=== PATIENT | male | born 1985 | race Caucasian/White ===

== ENCOUNTER 2024-01-19 11:41 | Emergency (ER) | payer OTHER, SELFPAY ==
[2024-01-19 12:08] VITALS: BP 132/82; PULSE 74; TEMP 36.7; O2SAT 99; BMI 26.5
--- NOTE | 2024-01-19 12:15 | XR_ITS ---
The [address] [address] Patient Name: ISAI AMOS MRN: [id number] date: 1985 Sex: M Assigned Patient Location: ER Current Patient Location: ER Accession/Order Number: [id number] Exam Date: 01/19/2024 12:35 Report Date: 01/19/2024 13:50 At the request of: ROB SENA Procedure: XR ankle RT min 3V PROCEDURE: XR foot RT min 3V, XR ankle RT min 3V COMPARISON: None. HISTORY: pain FINDINGS: BONES:No fracture, acute abnormality, or significant arthropathy. SOFT TISSUES:Moderate lateral soft tissue swelling EFFUSION:Small ankle joint effusion OTHER: Negative. XR/XR ankle RT min 3V IMPRESSION: Lateral ankle soft tissue swelling Ankle joint effusion No acute fracture of the foot or ankle Electronically authenticated by: VIVIANA MOSER Date: 01/19/2024 13:50
--- NOTE | 2024-01-19 12:15 | XR_ITS ---
The [address] [address] Patient Name: ISAI AMOS MRN: [id number] date: 1985 Sex: M Assigned Patient Location: ER Current Patient Location: ER Accession/Order Number: [id number] Exam Date: 01/19/2024 12:35 Report Date: 01/19/2024 13:50 At the request of: ROB SENA Procedure: XR foot RT min 3V PROCEDURE: XR foot RT min 3V, XR ankle RT min 3V COMPARISON: None. HISTORY: pain FINDINGS: BONES:No fracture, acute abnormality, or significant arthropathy. SOFT TISSUES:Moderate lateral soft tissue swelling EFFUSION:Small ankle joint effusion OTHER: Negative. XR/XR foot RT min 3V IMPRESSION: Lateral ankle soft tissue swelling Ankle joint effusion No acute fracture of the foot or ankle Electronically authenticated by: VIVIANA MOSER Date: 01/19/2024 13:50
--- NOTE | 2024-01-19 14:32 | ED_ITS ---
HPI HPI - Extremity Injury (Lower) General Chief Complaint: Extremity Injury, Lower Stated Complaint: LOWER RIGHT EXTREMITY PAIN Time Seen by Provider: 01/19/24 14:11 Source: patient Mode of arrival: ambulance Limitations: no limitations History of Present Illness HPI Narrative: Patient is a 38-year-old male who presents to the emergency department for the evaluation of a right foot and ankle injury that [place]. He denies any other associated injuries but states he twisted his foot and ankle. He complains of pain and swelling over the foot and ankle today, no medication taken prior to arrival. He is able to ambulate. Related Data Home Medications ?Medication ?Instructions ?Recorded ?Confirmed bupropion HCl 300 mg 24 hr tablet, 300 mg PO DAILY 01/19/24 01/19/24 extended release Previous Rx's ?Medication ?Instructions ?Recorded ketorolac 10 mg tablet 10 mg PO TID PRN pain #10 tabs 01/19/24 Allergies Allergy/AdvReac Type Severity Reaction Status Date / Time lidocaine Allergy Severe Cramping Verified 01/19/24 12:08 of the Muscles Opioid HPI Opioid Management Most Recent Pain and Opioid Data: No Data to Display Review of Systems ROS Constitutional Denies: fever or chills Ears, nose, mouth, and throat Denies: throat pain or nasal congestion Respiratory Denies: shortness of breath Gastrointestinal Denies: nausea or vomiting Musculoskeletal Reports: extremity pain, joint pain, limited range of motion and joint swelling; Denies: back pain or neck pain Integumentary/Breast Denies: rash Neurological Denies: headache Hematologic/Lymphatic Denies: easy bruising or easy bleeding Exam Narrative Exam Narrative: Gen.: Awake, alert, in no distress Head: Normocephalic, atraumatic ENT: Moist mucous membranes Respiratory: No respiratory distress Extremities: Dorsal lateral aspect of the right foot is swollen, bruised with diffuse swelling and tenderness over the right lateral malleolus. No obvious deformity. Normal flexion and extension of the toes. 2+ right DP pulse. Psych: Normal mood and affect Neuro: No focal neuro deficit Skin: Warm, dry, intact Constitutional Vital Signs, click to edit/add: Last Vital Signs Temp 98.0 F 01/19/24 12:08 Pulse 74 01/19/24 12:08 Resp 18 01/19/24 12:08 BP 132/82 01/19/24 12:08 Pulse Ox 99 01/19/24 12:08 O2 Del Method Room Air 01/19/24 12:08 Course Vital Signs Vital signs: Vital Signs Temperature 98.0 F 01/19/24 12:08 Pulse Rate 74 01/19/24 12:08 Respiratory Rate 18 01/19/24 12:08 Blood Pressure 132/82 01/19/24 12:08 Pulse Oximetry 99 01/19/24 12:08 Oxygen Delivery Method Room Air 01/19/24 12:08 Temperature 98.0 F 01/19/24 12:08 Pulse Rate 74 01/19/24 12:08 Respiratory Rate 18 01/19/24 12:08 Blood Pressure 132/82 01/19/24 12:08 Pulse Oximetry 99 01/19/24 12:08 Oxygen Delivery Method Room Air 01/19/24 12:08 MDM - Extremity Injury (Lower) MDM Narrative Medical decision making narrative: X-rays of the right foot and ankle are unremarkable. Patient placed in an David wrap and postop shoe. He was given crutches for comfort. He is neurovascularly intact pre and post hardware application. Rest, ice, elevate. He requested NSAIDs only for pain. Follow-up with PCP and return to the ER if symptoms change or worsen Medical Records Attestation: I reviewed the patient's medical records. Imaging Data XR ankle: Attestation: I have reviewed the pertinent imaging results. Radiologist's impression: ITS Impressions Ankle X-Ray 01/19/24 12:15 IMPRESSION: Lateral ankle soft tissue swelling Ankle joint effusion No acute fracture of the foot or ankle Electronically authenticated by: VIVIANA MOSER Date: 01/19/2024 13:50 Foot X-Ray 01/19/24 12:15 IMPRESSION: Lateral ankle soft tissue swelling Ankle joint effusion No acute fracture of the foot or ankle Electronically authenticated by: VIVIANA MOSER Date: 01/19/2024 13:50 Discharge Plan Discharge Stand Alone Forms: Portal Instructions Chief Complaint: Extremity Injury, Lower Clinical Impression: Sprain of right foot, Sprain of ankle, right Patient Disposition: Home, Self-Care Time of Disposition Decision: 14:31 Condition: Good Prescriptions / Home Meds: New ketorolac 10 mg tablet 10 mg PO TID PRN (Reason: pain) Qty: 10 0RF No Action bupropion HCl 300 mg tablet extended release 24 hr 300 mg PO DAILY Print Language: Turkish Instructions: Ankle Sprain (ED), Foot Sprain (ED) Referrals: Physician,Non-Staff, MD [Primary Care Provider] - 1 week
[2024-01-19 14:37] VITALS: BP 136/89; PULSE 82; O2SAT 98
== END 2024-01-19 14:41 | disposition home or self-care (01) ==
PROVIDERS: Emergency Provider Emergency Medicine
DX: S93.601A Unspecified sprain of right foot, initial encounter (principal); S93.401A Sprain of unspecified ligament of right ankle, initial encounter; Y93.44 Activity, trampolining
CPT/HCPCS: 73610; 73630; 99284

== ENCOUNTER 2024-03-12 12:51 | Outpatient (OUT) | payer OTHER, SELFPAY ==
--- NOTE | 2024-03-12 | MR_ITS ---
The [address] [address] Patient Name: ISAI AMOS MRN: [id number] date: 1985 Sex: M Assigned Patient Location: MRI Current Patient Location: MRI Accession/Order Number: [id number] Exam Date: 03/12/2024 13:10 Report Date: 03/17/2024 08:23 At the request of: LATESHA ARIZA Procedure: MR ankle RT wo con EXAM: MR ankle RT wo con, MR foot RT wo con REASON FOR EXAM: History of right ankle injury. TECHNIQUE: Multiplanar, multisequence imaging of the right ankle and foot was performed without contrast COMPARISON: Radiographs 01/28/2024. FINDINGS: Right ankle: Mild fusiform thickening and intermediate signal the Achilles tendon with distal Achilles enthesophytes is consistent with tendinosis. No tear. The plantar fascia is intact without tear. Laterally, mild thickening and intermediate signal of the peroneal tendons consistent with tendinosis. There is a short segment longitudinal split tear of the inframalleolar peroneus brevis tendon (series 11, images 14-17). Complete rupture not identified. The superficial peroneal retinaculum is intact. Thickening and intermediate signal the anterior talofibular and calcaneofibular ligaments is consistent with prior lateral ligamentous injury. No evidence of acute ligamentous injury. Medially, the medial flexor tendons demonstrate normal thickness and signal without tendinosis or tear. The deep deltoid ligament demonstrates normal morphology with some mild edema, potentially reflecting a low-grade sprain, acute or subacute. The spring ligament is intact. Anteriorly, the anterior extensor tendons demonstrate normal thickness and signal without tendinosis or tear. The bone marrow signal is without fracture or osteonecrosis. Probable intraosseous lipoma identified involving the calcaneus. This well-defined lesion follows fat on all sequences and measures 2.7 cm in maximum dimension. The talar dome is congruent. The subtalar joints intact. Small tibiotalar effusion is present. The subtalar joint is congruent. The sinus tarsi is mildly edematous. The visualized midfoot appears congruent. There is bone marrow edema involving the plantar aspect of the cuboid bone with possible small cortical defect with curvilinear T1 hypointense, T2 hyperintense signal (series 6, image 18; series 8, image 18), potentially reflecting a small nondisplaced fracture. There is also faint bone marrow edema involving the medial malleolus, potential reflecting bone contusion. The plantar musculature demonstrates normal bulk and signal. Remaining soft tissues are unremarkable. Right foot: The remaining bone marrow signal is normal. The midfoot appears congruent. Lisfranc ligament is intact. Mild first through third metatarsal webspace bursitis without discrete neuroma. Plantar muscles are unremarkable. Remaining soft tissues are unremarkable. MR/MR ankle RT wo con IMPRESSION: 1. Possible acute or subacute nondisplaced fracture involving the distal plantar margin the cuboid bone. Probable bone contusion involving the medial malleolus without fracture. 2. Possible acute or subacute low-grade sprain of the deep deltoid ligament. 3. Chronic appearing sprains of the ATFL and CFL. 4. Peroneal tendinosis with small short segment longitudinal split tear of the inframalleolar peroneus brevis tendon. 5. Achilles tendinosis without tear. 6. 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 Electronically authenticated by: REN LOPEZ Date: 03/17/2024 08:23
--- NOTE | 2024-03-12 | MR_ITS ---
The [address] [address] Patient Name: ISAI AMOS MRN: [id number] date: 1985 Sex: M Assigned Patient Location: MRI Current Patient Location: MRI Accession/Order Number: [id number] Exam Date: 03/12/2024 13:10 Report Date: 03/17/2024 08:23 At the request of: LATESHA ARIZA Procedure: MR foot RT wo con EXAM: MR ankle RT wo con, MR foot RT wo con REASON FOR EXAM: History of right ankle injury. TECHNIQUE: Multiplanar, multisequence imaging of the right ankle and foot was performed without contrast COMPARISON: Radiographs 01/28/2024. FINDINGS: Right ankle: Mild fusiform thickening and intermediate signal the Achilles tendon with distal Achilles enthesophytes is consistent with tendinosis. No tear. The plantar fascia is intact without tear. Laterally, mild thickening and intermediate signal of the peroneal tendons consistent with tendinosis. There is a short segment longitudinal split tear of the inframalleolar peroneus brevis tendon (series 11, images 14-17). Complete rupture not identified. The superficial peroneal retinaculum is intact. Thickening and intermediate signal the anterior talofibular and calcaneofibular ligaments is consistent with prior lateral ligamentous injury. No evidence of acute ligamentous injury. Medially, the medial flexor tendons demonstrate normal thickness and signal without tendinosis or tear. The deep deltoid ligament demonstrates normal morphology with some mild edema, potentially reflecting a low-grade sprain, acute or subacute. The spring ligament is intact. Anteriorly, the anterior extensor tendons demonstrate normal thickness and signal without tendinosis or tear. The bone marrow signal is without fracture or osteonecrosis. Probable intraosseous lipoma identified involving the calcaneus. This well-defined lesion follows fat on all sequences and measures 2.7 cm in maximum dimension. The talar dome is congruent. The subtalar joints intact. Small tibiotalar effusion is present. The subtalar joint is congruent. The sinus tarsi is mildly edematous. The visualized midfoot appears congruent. There is bone marrow edema involving the plantar aspect of the cuboid bone with possible small cortical defect with curvilinear T1 hypointense, T2 hyperintense signal (series 6, image 18; series 8, image 18), potentially reflecting a small nondisplaced fracture. There is also faint bone marrow edema involving the medial malleolus, potential reflecting bone contusion. The plantar musculature demonstrates normal bulk and signal. Remaining soft tissues are unremarkable. Right foot: The remaining bone marrow signal is normal. The midfoot appears congruent. Lisfranc ligament is intact. Mild first through third metatarsal webspace bursitis without discrete neuroma. Plantar muscles are unremarkable. Remaining soft tissues are unremarkable. MR/MR foot RT wo con IMPRESSION: 1. Possible acute or subacute nondisplaced fracture involving the distal plantar margin the cuboid bone. Probable bone contusion involving the medial malleolus without fracture. 2. Possible acute or subacute low-grade sprain of the deep deltoid ligament. 3. Chronic appearing sprains of the ATFL and CFL. 4. Peroneal tendinosis with small short segment longitudinal split tear of the inframalleolar peroneus brevis tendon. 5. Achilles tendinosis without tear. 6. 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 Electronically authenticated by: REN LOPEZ Date: 03/17/2024 08:23
== END 2024-03-12 12:52 | disposition home or self-care (01) ==
LOC: MRI 12:51
PROVIDERS: Visit Provider Podiatrist
DX: M25.571 Pain in right ankle and joints of right foot (principal); M79.671 Pain in right foot
CPT/HCPCS: 73718; 73721

== ENCOUNTER 2024-10-28 18:27 | Emergency (ER) | payer OTHER, SELFPAY ==
--- OUTSIDE RECORDS SUMMARY | 2024-10-28 18:33 | XMS_ITS | CCD ---
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 Role Phone MARYC, DR SCHWARTZ Primary Care Unavailable RADHA, DR MAIRCEL Mariscal Admitting Unavailable RADHA, DR MARICEL Mariscal Attending Unavailable RADHA, DR MARICEL Mariscal Consulting Unavailable KAYLYNN, ALAINA Admitting Unavailable MISC, DR SCHWARTZ Primary Care Unavailable KAYLYNN, ALAINA Attending Unavailable ALAINA CHAIDEZ Consulting Unavailable MISC, DR SCHWARTZ Primary Care Unavailable NILL, DR SNOWDEN Admitting Unavailable NILL, DR SNOWDEN Attending Unavailable MISC, DR SCHWARTZ Primary Care Unavailable NILL, DR SNOWDEN Consulting Unavailable NILL, DR SNOWDEN Admitting Unavailable NILL, DR SNOWDEN Attending Unavailable MISC, DR SCHWARTZ Primary Care Unavailable NILL, DR SNOWDEN Consulting Unavailable NILL, DR SNOWDEN Admitting Unavailable NILL, DR SNOWDEN Attending Unavailable ROBERTA STINSON Consulting Unavailable Briseida Tom Unavailable Miguel Jean-Baptiste Unavailable NO FAMILY, PHYSICIAN Primary Care Provider Unava DIMITRI Ochoa Attending Provider [phone] Allison Dickson Attending Unavailable Allison Dickson Admitting Unavailable NO FAMILY, PHYSICIAN Primary Care Unavailable Allergies Allergy Classification Reported Allergen(s) Allergy Type Date of Onset Reaction(s) Facility (3 sources) Lidocaine; Translations: [lidocaine] Drug Allergy 12-10-2023 nervous system starts to shut down [facility] Medications Current Medications Medication Drug Class(es) Dates Sig (Normalized) Sig (Original) 24 hr buPROPion hydrochloride 150 mg extended release oral tablet (3 sources) Aminoketone Start: 12-10-2023 take 1 tablet by mouth once daily Bupropion Hcl Active 300 MG PO Daily December 10, 2023 12:00am [employer]: Oral; Note: Source Status: Taking; Qty: 30 Tablet; Provider: Vaishali Goins ( ) buPROPion HCl ER (XL) 150 MG Oral for 30 Days Active cephalexin 500 mg oral capsule (1 source) Cephalosporin Antibacterial Start: 03-13-2023 take 1 capsule by mouth every eight hours Cephalexin 500 MG 1 capsule Orally tid for 10 day(s) Mar, Active fluconazole 150 mg oral tablet (1 source) Azole Antifungal Start: 03-13-2023 take 1 tablet by mouth every week Diflucan 150 MG 1 tablet Orally once a week for 28 days Mar, Active Completed/Discontinued Medications Medication Drug Class(es) Dates Sig (Normalized) Sig (Original) cyclobenzaprine hydrochloride 10 mg oral tablet (3 sources) Muscle Relaxant Start: 1 take 1 tablet by mouth every eight hours Cyclobenzaprine HCl 10 MG 1 tablet as needed Orally Three times a day for 7 days December, Not-Taking ibuprofen 800 mg oral tablet (3 sources) Nonsteroidal Anti-inflammatory Drug Start: 1 take 1 tablet by mouth three times daily at mealtime as needed Ibuprofen 800 MG 1 tablet with food or milk as needed Orally Three times a day for 10 day(s) May, Not-Taking Ketorolac (1 source) Nonsteroidal Anti-inflammatory Drug, Cyclooxygenase Inhibitor Start: 1 Toradol per 15 mg December, 30 mg methylPREDNISolone 4 mg oral tablet (4 sources) Corticosteroid Start: 1 Medrol 4 MG as directed Orally for 6 days December, Not-Taking Start: 01-04-2021 Depo-Medrol 40 mg December, 60 mg Toradol 30 mg/ml (1 source) Start: 05-24-2021 Toradol 30 mg/ ml May, 30 mg Problems Active Problems Problem Classification Problem Date Documented Da te Episodic/Chronic Abdominal hernia (8 sources) Unilateral inguinal hernia, without obstruction or gangrene, recurrent; Translations: [Unilateral inguinal hernia, with obstruction, without gangrene, not specified as recurrent] Onset: 01-14-2021 Episodic Fever of unknown origin (4 sources) Fever, unspecified; Translations: [FEVER UNSPECIFIED] Onset: 04-23-2021 Episodic Mycoses (1 source) Tinea pedis Episodic Other injuries and conditions due to external causes (1 source) Injury, unspecified, initial encounter; Translations: [Injury, unspecified, initial encounter] Onset: 12-10-2023 Episodic Other upper respiratory infections (1 source) Acute upper respiratory infection, unspecified; Translations: [ACUTE UP RESPIRATORY INFECTION UNS] Onset: 04-25-2021 Episodic Skin and subcutaneous tissue infections (1 source) Local infection of the skin and subcutaneous tissue, unspecified Episodic Substance-related disorders (1 source) Nicotine dependence, cigarettes, uncomplicated; Translations: [NICOTINE DEPEND CIGARETTES UNCOMP] Onset: 02-09-2021 Chronic Unclassified (1 source) CONTACT W/AND (SUSP) EXPOS COVID-19; Translations: [CONTACT W/AND (SUSP) EXPOS COVID-19] Onset: 02-08-2021 Viral infection (1 source) COVID-19; Translations: [COVID-19] Onset: 04-25-2021 Past or Other Problems Problem Classification Problem Date Documented Da te Episodic/Chronic Immunizations and screening for infectious disease (1 source) Encounter for screening for other viral diseases Onset: 08-27-2021 Resolved: 08-27-2021 Episodic Other connective tissue disease (1 source) Pain in right foot; Translations: [Foot pain, right M79.671] Onset: 05-24-2021 Resolved: 05-24-2021 Episodic Other connective tissue disease (1 source) Other enthesopathy of unspecified foot and ankle; Translations: [Tendonitis of foot M77.50] Onset: 05-24-2021 Resolved: 05-24-2021 Episodic Results Test Name Value Interpretation Reference Range Facility XR hand RT min 3V*on 024 XR hand RT min 3V* [facility] [address] [place] [id number] XRay Report Signed Patient: Isai Amos MR#: [id number] 42 : 1985 Acct:[id number] Age/Sex: 37 / M ADM Date: 12/10/23 Loc: XDUCLY Room: Type: [facility] Attending Dr: Allison Dickson APRN Copies to: Allison Dickson APRN Ordering Provider: Allison Dickson APRN Date of Service: 12/10/23 XR/XR hand RT min 3V*: T14.90XA - Injury, unspecified, initial encounter RIGHT HAND - 3 views REASON FOR EXAM: Right hand pain status post injury one week ago. COMPARISON: None FINDINGS: No focal soft tissue abnormality. No acute bony process is seen. Joint spaces appear maintained. XR/XR hand RT min 3V* IMPRESSION: NO ACUTE BONY PROCESS. Impression dictated by: Alexander Garcia Jr., D.O.12/10/2023 10:37 AM Dictation Location: RADIO-PC-12 Transcribed By: [facility] 12/10/23 1037 Dictated By: Alexander Garcia Jr, DO 12/10/23 1033 Signed By: 12/10/23 1037 Normal [facility] COVID Quick Testingon 2021 Result Negative [employer] Other XR foot LT min 3V*on 021 XR foot LT min 3V* [facility] [employer] Other XR foot LT min 3V* [facility] [place] [employer] Other XR foot LT min 3V* [address] [place] [address] [employer] Other XR foot LT min 3V* [place] [address] [employer] Other XR foot LT min 3V* XRay Report [employer] Other XR foot LT min 3V* Signed [employer] Other XR foot LT min 3V* Patient: Isai Amos MR#: [id number] [employer] Other XR foot LT min 3V* 43 [employer] Other XR foot LT min 3V* : 1985 Acct:[id number] [employer] Other XR foot LT min 3V* Age/Sex: 35 / M ADM Date: 05/24/21 [employer] Other XR foot LT min 3V* Loc: XDUCLY Room: Type: [facility] [employer] Other XR foot LT min 3V* Attending Dr: Briseida MORRIS [employer] Other XR foot LT min 3V* Ordering Provider: ARTURO Zepeda [employer] Other XR foot LT min 3V* Date of Service: 05/24/21 [employer] Other XR foot LT min 3V* XR/XR foot LT min 3V*: Foot pain, right [employer] Other XR foot LT min 3V* Copies to: ARTURO Zepeda [employer] Other XR foot LT min 3V* 3 viewsLEFT foot plain film [employer] Other XR foot LT min 3V* COMPARISON:None N [employer] Other XR foot LT min 3V* HISTORY:LEFT anterior foot pain. No trauma. [employer] Other XR foot LT min 3V* No fracture, dislocation or focal soft tissue abnormality seen. No significant degeneration. [employer] Other XR foot LT min 3V* XR/XR foot LT min 3V* [employer] Other XR foot LT min 3V* IMPRESSION:Unremarka ble exam [employer] Other XR foot LT min 3V* Impression dictated by: Ceasar Crump M.D.05/24/2021 5:26 PM [employer] Other XR foot LT min 3V* Dictation Location: [place] [address] [employer] Other XR foot LT min 3V* Transcribed By: SHEREE 05/24/21 1726 [employer] Other XR foot LT min 3V* Dictated By: TheronCeasar S DO 05/24/21 1723 [facility] [employer] Other XR foot LT min 3V* Signed By: [employer] Other XR foot LT min 3V* 05/24/21 1726 [facility] [employer] Other SYMPTOMATIC COVID-19 ANTIGEN on 04-23-2021 EUA Statement SEE BELOW [facility] Comment on above: Result Comment: This test has not been FDA cleared or approved, but has been authorized by the FDA under an Emergency Use Authorization (EUA) for use by authorized laboratories certified under CLIA that meet the requirements to perform moderate or high complexity testing. This test has been authorized only for the detection of proteins from SARS-CoV-2, not for any other viruses or pathogens. The emergency use of this test is authorized for the duration of the declaration that circumstances exist justifying the authorization of emergency use of in vitro diagnostic tests for detection and/or diagnosis of Covid-19 under section 564(b)(1) of the Act, 21 U.S.C. 360bbb-3(b)(1), unless the declaration is terminated or authorization is revoked sooner. Performed By: #### C VDAGS #### [facility] [address] [place] [address] Campbell Jon SARS-CoV-2 (COVID-19) RNA ANIA+probe Ql (Unsp spec) Positive Invalid Interpretation Code NEGATIVE [facility] Comment on above: Performed By: #### C VDAGS #### [facility] [address] [place], [place] [address] Campbell Jon Patient Correspondenceon Patient Correspondence [id number] #1.00CD:[address] [facility] Provider Letteron 03-13-2021 Provider Letter March 10, 2021 March 10, 2021 [address] [place] [id number] ISAI AMOS 1985 To Whom It May Concern, Please excuse above patient from work. Date of Illness: From: 02/08/21 To: 03/12/21 May Return to Work On: 03/13/21 Restrictions: none Sincerely, Dr. Isi Wesley General Surgery [facility] Pt called stating that he needed a signed note before he could go back, rtw date needed to be changed to 03/14/21 due to not being able to return today until signed note was faxed in. New note made, signed and faxed today .([phone]) Normal [facility] Formson 03-09-2021 Forms [id number] #1.00CD:[address] [facility] Ambulatory Clinical Summaryo n 03-07-2021 Ambulatory Clinical Summary {[id number]}CD:[id number] Normal [facility] General Surgery Office/Clini c Noteon 03-07-2021 General Surgery Office/Clinic Note HPI Staff RIH repair with mesh 02/08/21 4 wks p/o c/o pain rt groin and rt mid abd , bloated History of Present Illness 4 weeks s/p RIHR with mesh; doing well, patient reports some pain with activity, bending; did do some heavy lifting x 1; taking ibuprofen; not ready to return to work tomorrow; no problems with incision. Review of Systems ROS - Provider Constitutional: no fever, no sweats, no weight loss. Eyes: no glasses, no blurred vision, no visual loss. ENMT: no dentures, no hoarseness, no swallowing difficulties, no hearing loss, no ear infection(s), no nose bleeds. Cardiovascular: normal blood pressure, no chest pain, regular heartbeat, no heart murmur. Respiratory: no shortness of breath, no cough, no asthma, no wheezing. Gastrointestinal: no nausea, no vomiting, no diarrhea, no constipation, no blood in stool, no change in bowel habits, no abdominal pain, no hepatitis. Genitourinary: no kidney stones, no urine infection, no dysuria. Musculoskeletal: no pain, no weakness. Skin: no changing moles, no rash, no skin lumps. Neurologic: no seizures, no epilepsy, no headache. Psychiatric: no emotional or psychiatric problem. Heme/Lymph: no bleeding problems, no anemia, no blood clots, no transfusions. Allergy/Immunologic: no swollen lymph nodes/glands, no IV drug abuse. Other: Additional ROS info: Except as noted in the above Review of Systems and in the History of Present Illness, all other systems have been reviewed and are negative or noncontributory. Physical Exam Vitals & Measurements T: 37.0 ?C (Tympanic) abd:soft, normal bs, nontender, nondistended; incision well-healed, no erythema or drainage; no recurrent hernia, no point tenderness. Assessment/Plan 1. Reducible right inguinal hernia (K40.90: Unilateral inguinal hernia, without obstruction or gangrene, not specified as recurrent) doing well; off work this week; gradually resume regular activities; return to work Saturday without restrictions; call with problems/questions. Follow-up No qualifying data available Problem List/Past Medical History Ongoing BMI 27.0-27.9,adult Diverticulitis Reducible right inguinal hernia Smoker Tobacco use Historical No qualifying data Procedure/Surgical History Repair of right inguinal hernia (02/08/2021), History of inguinal hernia surgery (02/1987), Ganglion cyst. Medications No active medications Allergies No Known Allergies Social History Alcohol Past, 01/24/2021 Tobacco 10 or more cigarettes (1/2 pack or more)/day in last 30 days Tobacco Use:. Never Smokeless Tobacco Use:. Cigarettes, 02/21/2021 Family History Cancer: Mother. Immunizations Vaccine Date Status Comments SARS-CoV-2 (COVID-19) mRNA-1273 vaccine 10/14/2020 Recorded [employer] [facility] Comment on above: Result Comment: Elec tronically Signed By: MARKO ROBERTSON, Isi Mcginnis\Date and Time Signed: 03/07/21 13:06 EDT Formson 02-23-2021 Forms [id number] #1.00CD:127 [facility] Ambulatory Clinical Summaryo n 02-21-2021 Ambulatory Clinical Summary {[id number]}CD:[id number] Normal [facility] General Surgery Office/Clini c Noteon 02-21-2021 General Surgery Office/Clinic Note Chief Complaint post operative follow up HPI Staff 13 day post operative follow up post right inguinal hernia repair with mesh. Doing well. Minimal discomfort. Taking Ibuprofen 800mg daily. Scant bloody drainage on bandage. Bowels moving well. History of Present Illness 2 weeks s/p RIHR with mesh, doing well, minimal soreness, no drainage; not doing any strenuous activities. Review of Systems ROS - Provider Constitutional: no fever, no sweats, no weight loss. Eyes: no glasses, no blurred vision, no visual loss. ENMT: no dentures, no hoarseness, no swallowing difficulties, no hearing loss, no ear infection(s), no nose bleeds. Cardiovascular: normal blood pressure, no chest pain, regular heartbeat, no heart murmur. Respiratory: no shortness of breath, no cough, no asthma, no wheezing. Gastrointestinal: no nausea, no vomiting, no diarrhea, no constipation, no blood in stool, no change in bowel habits, no abdominal pain, no hepatitis. Genitourinary: no kidney stones, no urine infection, no dysuria. Musculoskeletal: no pain, no weakness. Skin: no changing moles, no rash, no skin lumps. Neurologic: no seizures, no epilepsy, no headache. Psychiatric: no emotional or psychiatric problem. Heme/Lymph: no bleeding problems, no anemia, no blood clots, no transfusions. Allergy/Immunologic: no swollen lymph nodes/glands, no IV drug abuse. Other: Additional ROS info: Except as noted in the above Review of Systems and in the History of Present Illness, all other systems have been reviewed and are negative or noncontributory. Physical Exam Vitals & Measurements T: 36.6 ?C (Temporal Artery) abd: soft, normal bs, nontender, nondistended, incision without erythema or drainage, no fluctuance. Assessment/Plan 1. Reducible right inguinal hernia (K40.90: Unilateral inguinal hernia, without obstruction or gangrene, not specified as recurrent) doing well, continue no lifting > 10 lbs for 2 weeks, follow up in 2 weeks; call sooner if problems/questions. Follow-up No qualifying data available Problem List/Past Medical History Ongoing BMI 27.0-27.9,adult Diverticulitis Reducible right inguinal hernia Smoker Tobacco use Historical No qualifying data Procedure/Surgical History Repair of right inguinal hernia (02/08/2021), History of inguinal hernia surgery (02/1987), Ganglion cyst. Medications No active medications Allergies No Known Allergies Social History Alcohol Past, 01/24/2021 Tobacco 10 or more cigarettes (1/2 pack or more)/day in last 30 days Tobacco Use:. Never Smokeless Tobacco Use:. Cigarettes, 02/21/2021 Family History Cancer: Mother. Immunizations Vaccine Date Status Comments SARS-CoV-2 (COVID-19) mRNA-1273 vaccine 10/14/2020 Recorded [id number] Comment on above: Result Comment: Elec tronically Signed By: MARKO ROBERTSON, Isi Mcginnis\Date and Time Signed: 02/21/21 13:18 EDT Operative Reporton Operative Report [id number] #1.00CD:127 [facility] Formson 02-06-2021 Forms [id number] #1.00CD:127 [facility] Lab Reportson 02-06-2021 Lab Reports [id number] #1.00CD:127 [facility] RAPID COVID-19 ANTIGENon EUA Statement SEE BELOW [facility] Comment on above: Result Comment: This test has not been FDA cleared or approved, but has been authorized by the FDA under an Emergency Use Authorization (EUA) for use by authorized laboratories certified under CLIA that meet the requirements to perform moderate or high complexity testing. This test has been authorized only for the detection of proteins from SARS-CoV-2, not for any other viruses or pathogens. The emergency use of this test is authorized for the duration of the declaration that circumstances exist justifying the authorization of emergency use of in vitro diagnostic tests for detection and/or diagnosis of Covid-19 under section 564(b)(1) of the Act, 21 U.S.C. 360bbb-3(b)(1), unless the declaration is terminated or authorization is revoked sooner. Performed By: #### C VDAG #### [facility] [address] [place], [place] [id number] Campbell Jon SARS-CoV-2 (COVID-19) RNA ANIA+probe Ql (Unsp spec) Negative Normal NEGATIVE [facility] Comment on above: Result Comment: Nega tive results are presumptive. They do not preclude infection and should not be used as the sole basis for treatment decisions. Additional confirmatory testing by a molecular method should be considered. Performed By: #### C VDAG #### [facility] [address] [place] [address] Campbell Jon Consent for Procedure/Surger yon 01-25-2021 Consent for Procedure/Surgery [id number] #1.00CD:[address] [facility] Ambulatory Clinical Summaryo n 01-24-2021 Ambulatory Clinical Summary {[id number]}CD:[id number] Normal [facility] Ambulatory Clinical Summary {[id number]}CD:[id number] Normal [facility] Patient Educationon 01-25-20 Patient Education Gastroenterology Open Hernia Repair, Adult Open hernia repair is a surgical procedure to fix a hernia. A hernia occurs when an internal organ or tissue pushes out through a weak spot in the abdominal wall muscles. Hernias commonly occur in the groin and around the navel. Most hernias tend to get worse over time. Often, surgery is done to prevent the hernia from becoming bigger, uncomfortable, or an emergency. Emergency surgery may be needed if abdominal contents get stuck in the opening (incarcerated hernia) or the blood supply gets cut off (strangulated hernia). In an open repair, an incision is made in the abdomen to perform the surgery. Tell a health care provider about: ? Any allergies you have. ? All medicines you are taking, including vitamins, herbs, eye drops, creams, and yhrf-vem-ldgzdqb medicines. ? Any problems you or family members have had with anesthetic medicines. ? Any blood or bone disorders you have. ? Any surgeries you have had. ? Any medical conditions you have, including any recent cold or flu symptoms. ? Whether you are or may be . What are the risks? Generally, this is a safe procedure. However, problems may occur, including: ? Long-lasting (chronic) pain. ? Bleeding. ? Infection. ? Damage to the testicle. This can cause shrinking or swelling. ? Damage to the bladder, blood vessels, intestine, or nerves near the hernia. ? Trouble passing urine. ? Allergic reactions to medicines. ? Return of the hernia. What happens before the procedure? Staying hydrated Follow instructions from your health care provider about hydration, which may include: ? Up to 2 hours before the procedure ? you may continue to drink clear liquids, such as water, clear fruit juice, black coffee, and plain tea. Eating and drinking restrictions Follow instructions from your health care provider about eating and drinking, which may include: ? 8 hours before the procedure ? stop eating heavy meals or foods such as meat, fried foods, or fatty foods. ? 6 hours before the procedure ? stop eating light meals or foods, such as toast or cereal. ? 6 hours before the procedure ? stop drinking milk or drinks that contain milk. ? 2 hours before the procedure ? stop drinking clear liquids. Medicines ? Ask your health care provider about: ? Changing or stopping your regular medicines. This is especially important if you are taking diabetes medicines or blood thinners. ? Taking medicines such as aspirin and ibuprofen. These medicines can thin your blood. Do not take these medicines before your procedure if your health care provider instructs you not to. ? You may be given antibiotic medicine to help prevent infection. General instructions ? You may have blood tests or imaging studies. ? Ask your health care provider how your surgical site will be marked or identified. ? If you smoke, do not smoke for at least 2 weeks before your procedure or for as long as told by your health care provider. ? Let your health care provider know if you develop a cold or any infection before your surgery. ? Plan to have someone take you home from the hospital or clinic. ? If you will be going home right after the procedure, plan to have someone with you for 24 hours. What happens during the procedure? ? To reduce your risk of infection: ? Your health care team will wash or sanitize their hands. ? Your skin will be washed with soap. ? Hair may be removed from the surgical area. ? An IV tube will be inserted into one of your veins. ? You will be given one or more of the following: ? A medicine to help you relax (sedative). ? A medicine to numb the area (local anesthetic). ? A medicine to make you fall asleep (general anesthetic). ? Your surgeon will make an incision over the hernia. ? The tissues of the hernia will be moved back into place. ? The edges of the hernia may be stitched together. ? The opening in the abdominal muscles will be closed with stitches (sutures). Or, your surgeon will place a mesh patch made of manmade (synthetic) material over the opening. ? The incision will be closed. ? A bandage (dressing) may be placed over the incision. The procedure may vary among health care providers and hospitals. What happens after the procedure? ? Your blood pressure, heart rate, breathing rate, and blood oxygen level will be monitored until the medicines you were given have worn off. ? You may be given medicine for pain. ? Do not drive for 24 hours if you received a sedative. This information is not intended to replace advice given to you by your health care provider. Make sure you discuss any questions you have with your health care provider. Document Released: 01/22/2002 Document Revised: 07/11/2018 Document Reviewed: 01/09/2017 Elsevier Patient Education ? 2019 [employer] Inguinal Hernia, Adult An inguinal hernia develops (more content not included)... Normal [facility] ED Note-Physicianon 01-24-20 ED Note-Physician [id number] #[id number] [facility] Vital Signs Date Time Vital Sign Value Performing Clinician Facility 12-10-2023 10:16-0400 Body height 177.16 cm PHYSICIAN NO [facility] 12-10-2023 10:16-0400 Body mass index (BMI) [Ratio] 26.3 kg/m2 PHYSICIAN NO [facility] 12-10-2023 10:16-0400 Body temperature 97.9 [degF] PHYSICIAN NO [facility] 12-10-2023 10:16-0400 Body weight 82.72 kg PHYSICIAN NO [facility] 12-10-2023 10:16-0400 Heart rate 64 /min PHYSICIAN NO [facility] 12-10-2023 10:16-0400 Respiratory rate 18 /min PHYSICIAN NO [facility] 12-10-2023 10:16-0400 SaO2% (BldA) [Mass fraction] 98 % PHYSICIAN NO [facility] 03-13-2023 09:25-0400 Body height 177.16 cm Briseida Tom Other [facility] [facility] [employer] Other 03-13-2023 09:25-0400 Body mass index (BMI) [Ratio] 27.89 kg/m2 Briseida Tom Other [employer] Other 03-13-2023 09:25-0400 Body temperature 98.8 [degF] Briseida Tom Other [facility] Other 03-13-2023 09:25-0400 Body weight 87.54 kg Briseida Tom Other [employer] Other 03-13-2023 09:25-0400 Diastolic blood pressure 75 mm[Hg] Briseida Tom Other [facility] Other 03-13-2023 09:25-0400 Respiratory rate 18 /min Briseida Tom Other [employer] Other 03-13-2023 09:25-0400 SaO2% (BldA) [Mass fraction] 98 % Briseida Tom Other [employer] Other 03-13-2023 09:25-0400 Systolic blood pressure 128 mm[Hg] Briseida Jomond Other [facility] Other 05-24-2021 17:35-0400 Body height 177.16 cm Briseida Tom Other [employer] Other 05-24-2021 17:35-0400 Body mass index (BMI) [Ratio] 27.51 kg/m2 Briseida Tom Other [employer] Other 05-24-2021 17:35-0400 Body temperature 98.4 [degF] Briseida Tom Other [employer] Other 05-24-2021 17:35-0400 Body weight 86.37 kg Briseida Tom Other [employer] Other 05-24-2021 17:35-0400 Diastolic blood pressure 85 mm[Hg] Briseida Vaishali Other [employer] Other 05-24-2021 17:35-0400 Respiratory rate 18 /min Briseida Jomond Other [employer] Other 05-24-2021 17:35-0400 SaO2% (BldA) [Mass fraction] 99 % Briseida Vaishali Other [employer] Other 05-24-2021 17:35-0400 Systolic blood pressure 132 mm[Hg] Briseida Vaishali Other [employer] Other Encounters Encounter Date Encounter Type Care Provider Facility Start: 12-10-2023 End: 12-10-2023 ambulatory PHYSICIAN [facility] Work Phone: Start: 12-10-2023 End: 12-10-2023 Patient encounter procedure PHYSICIAN NO FAMILY [facility] Work Phone: Start: 03-13-2023 End: 03-13-2023 ambulatory Briseida Vaishali Other [employer] Other Start: 03-13-2023 Office outpatient vi sit 15 minutes Briseida Vaishali [facility] Start: 08-27-2021 End: 08-27-2021 ambulatory Miguel Jean-aBptiste Other [employer] Other Start: 08-27-2021 Office outpatient vi sit 5 minutes Miguel Jean-Baptiste [facility] Start: 05-24-2021 Office outpatient vi sit 15 minutes Briseida Vaishali [facility] Start: 04-23-2021 End: 04-23-2021 ambulatory ALAINA CHAIDEZ Facility:[facility] Start: 02-08-2021 Encounter for preprocedural laboratory examination DR ISI WESLEY [facility] Start: 02-08-2021 End: 02-08-[address] DOCTOR LOTT Facility:[facility] Start: 02-04-2021 End: 02-05-[address] DOCTOR LOTT Facility:[facility] Start: 02-04-2021 End: 02-05-2021 Encounter for preprocedural laboratory examination DR DOCTOR LOTT Facility:[facility] Start: 02-02-2021 Encounter for other preprocedural examination DR ISI WESLEY [facility] Start: 01-26-2021 End: 01-27-[address] DOCTOR LOTT Facility:[facility] Start: 01-26-2021 End: 01-27-2021 Encounter for other preprocedural examination DR DOCTOR LOTT Facility:[facility] Start: 01-14-2021 End: 01-14-[address] DOCTOR LOTT Facility:[facility] Procedures Date Procedure Procedure Detail Performing Clinician Start: 12-10-2023 Plain X-ray of right hand PHYSICIAN NO FAMILY Immunizations Immunization Date Immunization Notes Care Provider Fa cility 05-24-2021 Toradol 30 mg/ml Briseida Dymo nd Other [employer] Other 01-04-2021 Toradol per 15 mg Briseida Dym ond Other [employer] Other 01-04-2021 Depo-Medrol 40 mg Briseida Dym ond Other [employer] Other Payers Date Payer Category Payer Self-pay [id number] 2023 Unknown [id number] 1985 Unknown [id number] 1985 Unknown [id number] 1985 Unknown [id number] 1985 Unknown [id number] 1985 Unknown [id number] 1959 Unknown [id number] Unknown [id number] Unknown [employer] [id number] Unknown [id number] Social History Date Type Detail Facility Unknown if ever smoked [employer] Other Sex Assigned At Sex Assigned At Bir th [employer] Other Start: 12-10-2023 Tobacco smoking status NHIS Never smoked tobacco (finding) [facility] Start: 1985 Sex Assigned At Male F [facility] Evaluation note 03-13-2023 Note Date & Type Note Facility 03-13-2023 Evaluation note Encounter Date Diagnosis Assessment Notes Mar, Infection of toe determined by examination (ICD-10 - L08.9) Drink plenty fluids, get plenty of rest. Take the cephalexin as prescribed until gone for your toe infection. Take the Diflucan once a week for 4 weeks as prescribed for your athlete's foot, it is recommended she start this after you complete the cephalexin. Soak your foot in warm Epsom salt once or twice a day. Otherwise try to keep your foot as dry as possible. Follow-up with your family physician if no improvement in 2 to 3 days. May return to work on Mar, Tinea pedis of left foot (ICD-10 - B35.3) Athlete's foot home care material was printed [employer] Other Evaluation note 08-27-2021 Note Date & Type Note Facility 08-27-2021 Evaluation note Encounter Date Diagnosis Assessment Notes Aug, Encounter for screening for other viral diseases (ICD-10 - Z11.59) Pt offered provider visit, but declined and only wanted to keep his visit a nursing visit. Aug, Other Additional time spent conducting pre-visit phone call, screening for symptoms, instructions on social distancing, application and removal of PPE, and cleaning of examination room, equipment and supplies was preformed. Patient education given for testing methodology and results. Patient care instructions given in writting by [facility] document. [employer] Other Evaluation note 05-24-2021 Note Date & Type Note Facility 05-24-2021 Evaluation note Encounter Date Diagnosis Assessment Notes May, Foot pain, right (ICD-10 - M79.671) May, Tendonitis of foot (ICD-10 - M77.50) Drink plenty fluids, get plenty of rest. Elevate and ice your foot as much as possible. Take the ibuprofen up to 3 times a day with food as needed for pain. Follow-up with your family physician if no improvement in 5 to 7 days May, Other Tendonitis home care material was printed [employer] Other Clinical Note 02-08-2021 Note Date & Type Note Facility 02-08-2021 Note OPERATIVE NOTE OPERATION DATE: 02-08-21 ANESTHETIC:General endotracheal as well as local with Exparel solution. PREOPERATIVE DIAGNOSIS:Right inguinal hernia. POSTOPERATIVE DIAGNOSIS:Recurrent indirect right inguinal hernia. PROCEDURE NAME:Right inguinal herniorrhaphy with 5 x 10 cm mesh patch insertion. INDICATIONS AND CONSENT: The patient is a 35 year-old male with a several month history of enlarging symptomatic right inguinal hernia that's reducible. He did have a remote hernia repair as an infant. Indications, risks, benefits and alternatives of proceeding with herniorrhaphy with mesh insertion were explained extensively to the patient including the risk of bleeding, infection, scarring, pain, nerve injury, testicular injury, blood clot, pulmonary embolus, heart attack, anesthetic complications, need for further surgery or mesh removal, or risks associated with COVID-19. All of his questions were answered and informed consent was obtained. PROCEDURE: The patient was brought to the OR and placed in the supine position, General anesthesia was induced. He was prepped and draped in the usual sterile fashion. The right groin incision was made in the area of the skin crease and carried down to the subcutaneous tissue using sharp dissection and electrocautery. Venous branch was ligated with 3-0 Vicryl ties. Kiran's fascia was divided, the external oblique was attenuated and opened along the direction of its fibers down to the external inguinal ring. The port sites were mobilized and retracted. There was some weakness of the inguinal floor, but there was no direct hernia sac. There was a cord lipoma as well as a recurrent indirect hernia that was freed up from the cord structures and reduced back through the internal ring. A 5 x 10 cm patch was trimmed, a keyhole was created for the cord structures. It was then placed on the floor of the inguinal canal and secured circumferentially using interrupted 2-0 Prolene sutures. The arms were placed around the cord structures and secured as well. Care was taken to avoid undue tension on the cord structures. The wound was irrigated with antibiotic saline, there was good hemostasis. The external oblique was closed with a running 3-0 Vicryl suture. The subcutaneous tissue was infiltrated with 0.50% Marcaine. Kiran's fascia was reapproximated using interrupted 3-0 Monocryl sutures, the skin was then closed with a running 4-0 subcuticular Monocryl suture and skin glue. Sterile pressure dressing was applied. Sponge and needle counts were correct x2 per nursing personnel. The patient tolerated the procedure well and was sent to the Recovery Room in good condition. cc:[facility]. [facility] Signed and Approved by: DR ISI WESLEY . 02/08/2021 12:05:[address] [facility] Clinical Note 01-24-2021 Note Date & Type Note Facility 01-24-2021 Note Chief Complaint Consultation of Inguinal Hernia HPI Staff 35 year old male referred by [facility] on consultation of Right Inguinal Hernia. Seen at ER on 01/13/2021. Present x 3-4 months. C/o Large bulge, Discomfort, testicular pressure/achiness. Worse with activity, such as factory work. Hx of Diverticulitis and previous Left Inguinal Hernia. Denies symptoms of loss of appetite, fever, chills, nausea or vomiting. Taking Tylenol 500 mg or Ibuprofen 200 mg PRN. No change with bowel habits. History of Present Illness 35 yo male with long h/o right inguinal hernia, enlarging over last month, seen in ED for discomfort; no N/V; no bowel changes; hernia reducible; no skin changes; h/o LIHR as child, no other abdominal operations; smokes 1ppd; no imaging studies. Review of Systems PHQ Score Initial Depression Screen Score: 0 ROS - Provider Constitutional: no fever, no sweats, no weight loss. Eyes: no glasses, no blurred vision, no visual loss. ENMT: no dentures, no hoarseness, no swallowing difficulties, no hearing loss, no ear infection(s), no nose bleeds. Cardiovascular: normal blood pressure, no chest pain, regular heartbeat, no heart murmur. Respiratory: no shortness of breath, no cough, no asthma, no wheezing. Gastrointestinal: no nausea, no vomiting, no diarrhea, no constipation, no blood in stool, no change in bowel habits, mild abdominal pain, no hepatitis. Genitourinary: no kidney stones, no urine infection, no dysuria. Musculoskeletal: no pain, no weakness. Skin: no changing moles, no rash, no skin lumps. Neurologic: no seizures, no epilepsy, no headache. Psychiatric: no emotional or psychiatric problem. Heme/Lymph: no bleeding problems, no anemia, no blood clots, no transfusions. Allergy/Immunologic: no swollen lymph nodes/glands, no IV drug abuse. Other: Additional ROS info: Except as noted in the above Review of Systems and in the History of Present Illness, all other systems have been reviewed and are negative or noncontributory. Physical Exam Vitals & Measurements T: 35.1 ?C (Tympanic) HR: 92(Peripheral) SpO2: 97% HT: 177.8 cm HT: 177.80 cm WT: 88.2 kg WT: 88.3 kg BMI: 27.93 HEENT: normal conjunctiva, sclera clear, no scleral icterus, EOM intact, PERRLA, oral mucosa moist without lesions. Neck: trachea midline, no mass, symmetric, no thyromegaly or nodules, no adenopathy Respiratory: lungs CTA, respirations non labored. Cardiovascular: regular rate and rhythm, no murmur, no pedal edema or varicosities. Gastrointestinal: soft, non distended, no tenderness, no masses, reducible right inguinal hernia, no skin changes, nontender, no left inguinal hernia; diastasis recti no, no hepatosplenomegaly; normal bs Lymphatic: no cervical adenopathy, no axillary adenopathy, no inguinal adenopathy. Musculoskeletal: normal gait, digits and nails without infection, nodes, cyanosis, clubbing. Skin: no rashes, no lesions, no ulcers, no subcutaneous nodules, induration. Psychiatric/Neuro: oriented to time, place, person, judgement normal, affect appropriate for age, insight intact, no focal deficits. Tests: review of old records completed, Discussed surgical options, risks, and possible complications with patient. Assessment/Plan 1. Reducible right inguinal hernia (K40.90: Unilateral inguinal hernia, without obstruction or gangrene, not specified as recurrent) plan right inguinal hernia repair with mesh; informed consent obtained. signs/symptoms of incarceration/strangulation of hernia explained in detail, and patient understands that he should seek prompt medical evaluation if they were to occur. recommend decreasing tobacco use, or ideally complete smoking cessation, in the perioperative period to decrease complications such as wound infection, pneumonia or hernia recurrence. Ancef 2 gms IV prior to OR SCDs 2. Tobacco use (Z72.0: Tobacco use) We strongly recommend to quit tobacco use. Cigarette smoking harms nearly every organ of the body, causes many diseases, and reduces the health of smokers in general. Quitting smoking lowers your risk for smoking-related diseases and can add years to your life. We encourage you to visit www.smokefree.gov access to helpful resources including free telephone support. If you decide on prescription treatment to help you quit, your family doctor would be happy to provide these. Follow-up No qualifying data available Patient Education Open Hernia Repair, Adult Inguinal Hernia, Adult Problem List/Past Medical History Ongoing BMI 27.0-27.9,adult Diverticulitis Reducible right inguinal hernia Smoker Tobacco use Historical No qualifying data Procedure/Surgical History History of inguinal hernia surgery (02/1987), Ganglion cyst. Medications No active medications Allergies No Known Allergies Social History Alcohol Past, 01/24/2021 Tobacco Smoker, current status unknown Tobacco Use:. Never Smokeless Tobacco Use:. Cigarettes, 01/24/2021 Family Hi (more content not included)... [facility] Comment on above: Result Comment: Elec tronically Signed By: MARKO ROBERTSON, Isi Lennon.rahul\Date and Time Signed: 01/24/21 15:16 EDT Evaluation note Note Date & Type Note Facility Evaluation note [facility]: History general Narrative - Reported Note Date & Type Note Facility History general Narrative - Reported Type Medical History diverticulitis Medical History Hernia Medical History COVID Surgical History ganglion cyst Surgical History hernia repair Hospitalization History see above [employer] Other History general Narrative - Reported Note Date & Type Note Facility History general Narrative - Reported Type Medical History diverticulitis Medical History Hernia Medical History COVID Medical History Depression Surgical History ganglion cyst Surgical History hernia repair Surgical History vasectomy Hospitalization History see above [employer] Other Summary Purpose Family History No Family History Records Found Relationship Condition Age at Onset Recorded Date/T elder family member Unknown Not Specified Unknown Malignant neoplasm Unknown Advance Directives No Advanced Directives Records Found Advance Directive Response Recorded Date/ Time Advance Directives No January 06 7:29pm Chief Complaint and Reason for Visit Chief Complaint right hand injury T14.90XA - Injury, unspecified, initial encounter Additional Source Comments (unrecognized sect ion and content) No Status Records FoundNo Status Records FoundNo Status Records Found INFORMATION SOURCE (unrecogn ized section and content) DATE CREATED AUTHOR 03/17/2021 Melo Bhatti [facility] DATE CREATED AUTHOR AUTHOR'S ORGANIZ ATION 04/28/2021 [facility] DATE CREATED AUTHOR AUTHOR'S ORGANIZ ATION 02/15/2024 [facility] REASON FOR VISIT (unrecogniz ed section and content) LEFT FOOT SWOLLEN#1 BLACK HO NDA, COUGH, DIARRHEA, NAUSEA, SINUS DRAINAGE, ONLY WANTS A TEST, NO TREATMENTLEFT FOOT, 4TH TOE INFECTION, RED AND SWOLLEN Care Teams (unrecognized sec tion and content) Team Status: Active Member Role Status Dates PHYSICIAN NO FAMILY Primary Care Provider Active Team Status: Inactive Member Role Status Dates PHYSICIAN NO FAMILY Primary Care Provider Active Start: December 10, 2023 End: December 10, 2023 Allison Dickson APRN Attending Provider Active Start: December 10, 2023 End: December 10, 2023 Team Status: Active Member Role Status Dates PHYSICIAN NO FAMILY Primary Care Provider Active Start: December 10, 2023 Allison Dickson APRN Attending Provider Active Start: December 10, 2023 Goals (unrecognized section and content) Goals may be documented in a n alternate section FOR RECORDS PERTAINING TO PATIENTS WHO ARE OR HAVE BEEN ENROLLED IN A CHEMICAL DEPENDENCY/SUBSTANCEABUSE PROGRAM, SOME INFORMATION MAY BE OMITTED. This clinical summary was aggregated from multiple sources. Caution should be exercised in using it in the provision of clinical care. This summary normalizes information from multiple sources, and as a consequence, information in this document may materially change the coding, format and clinical context of patient data. In addition, data may be omitted in some cases. CLINICAL DECISIONS SHOULD BE BASED ON THE PRIMARY CLINICAL RECORDS. [facility] [employer] [facility]. provides no warranty or guarantee of the accuracy or completeness of information in this document.
[2024-10-28 18:40] VITALS: BP 115/62; PULSE 79; TEMP 36.6; O2SAT 98; BMI 34.0
--- NOTE | 2024-10-28 18:48 | ECG_ITS ---
[facility] Test Date: 2024-10-28 Pat Name: ISAI AMOS Department: Room: - Gender: Male Home Service Director: : 1985 Requested By: [id number] Order Number: [id number] Reading MD: DOMENIC GUILLEN Measurements Intervals [place] Rate: 65 P: 66 TX: 124 QRS: 86 QRSD: 106 T: -4 QT: 378 QTc: 389 Interpretive Statements 1100 Sinus rhythm 7500 Abnormal QRS-T angle 9130 borderline ECG No previous ECG available for comparison Electronically Signed On 10-29-2024 12:07:45 EDT by DOMENIC GUILLEN
--- NOTE | 2024-10-28 18:49 | ED.ABDPAIN1 ---
HPI - Abdominal Pain General Chief Complaint: Abdominal Pain Stated Complaint: abdominal pain Time Seen by Provider: 10/28/24 18:45 Mode of arrival: walk-in History of Present Illness HPI narrative: 38 year old male presents to the ED for abdominal pain. It has been intermittent for the past 2 weeks. Most of the pain is to the mid abdomen. Also reports episodes of chest pain which vary in location; sometimes left, middle or right-sided. Denies fever, chills, injury, N/V/D, urinary sx. Denies cough, SOB. Related Data Home Medications ?Medication ?Instructions ?Recorded ?Confirmed bupropion HCl 300 mg 24 hr tablet, 300 mg PO DAILY 01/19/24 01/19/24 extended release Previous Rx's ?Medication ?Instructions ?Recorded ketorolac 10 mg tablet 10 mg PO TID PRN pain #10 tabs 01/19/24 Allergies Allergy/AdvReac Type Severity Reaction Status Date / Time lidocaine Allergy Severe Cramping Verified 01/19/24 12:08 of the Muscles Review of Systems ROS Constitutional Denies: fever or chills Ears, nose, mouth, and throat Denies: throat pain or neck pain Cardiovascular Reports: chest pain; Denies: palpitations Respiratory Denies: shortness of breath or cough Gastrointestinal Reports: abdominal pain; Denies: nausea, vomiting or diarrhea Genitourinary Denies: painful urination, urinary frequency, urinary urgency or blood in urine Musculoskeletal Denies: back pain or neck pain Integumentary/Breast Denies: rash Neurological Denies: headache, numbness in extremities or weakness in extremities PFSH PFSH Social History Little interest or pleasure in doing things: not at all Feeling down, depressed, or hopeless: not at all Exam Constitutional Vital Signs, click to edit/add: Last Vital Signs Temp 97.8 F 10/28/24 18:40 Pulse 79 10/28/24 18:40 Resp 18 10/28/24 18:40 BP 115/62 10/28/24 18:40 Pulse Ox 98 10/28/24 18:40 O2 Del Method Room Air 10/28/24 18:40 Common normals: no apparent distress and oriented x3 General appearance: cooperative HENMT Common normals: moist oral mucous membranes Eye Common normals: conjunctivae normal and no scleral icterus Neck & C-Spine Common normals: supple Chest Chest: symmetrical chest wall rise Respiratory Common normals: normal respiratory effort and clear to auscultation bilaterally Effort & inspection: able to speak in complete sentences and symmetric chest movement Cardio Common normals: regular rate and regular rhythm GI Common normals: Normal to inspection, nondistended, normoactive bowel sounds present and soft to palpation Palpation: tender Details: periumbilical Neuro Common normals: oriented x3 and moves all extremities Sensorium/orientation: awake and alert Speech: speech normal Course Vital Signs Vital signs: Vital Signs Temperature 97.8 F 10/28/24 18:40 Pulse Rate 79 10/28/24 18:40 Respiratory Rate 18 10/28/24 18:40 Blood Pressure 115/62 10/28/24 18:40 Pulse Oximetry 98 10/28/24 18:40 Oxygen Delivery Method Room Air 10/28/24 18:40 Temperature 97.8 F 10/28/24 18:40 Pulse Rate 79 10/28/24 18:40 Respiratory Rate 18 10/28/24 18:40 Blood Pressure 115/62 10/28/24 18:40 Pulse Oximetry 98 10/28/24 18:40 Oxygen Delivery Method Room Air 10/28/24 18:40 MDM - Abdominal Pain MDM Narrative Medical decision making narrative: CT scan of the abdomen/pelvis was negative for acute findings. Chest x-ray was also negative for acute findings. Laboratory studies were unremarkable. Findings were discussed with the patient. Follow up with a primary care provider for a recheck, further evaluation and treatment. Differential Diagnosis Differential diagnosis: Likely abdominal pain, constipation, diverticulitis, pancreatitis and small bowel obstruction Medical Records Attestation: I reviewed the patient's medical records. Lab Data Attestation: I reviewed the patient's lab results. Labs: Lab Results 10/28/24 10/28/24 Range/Units 19:00 19:50 WBC 8.9 (4.0-11.0) 10^3/uL RBC 4.60 L (4.70-6.10) 10^6/uL Hgb 13.4 L (14.0-18.0) g/dL Hct 40.1 L (42.0-54.0) % MCV 87.2 (80.0-94.0) fL MCH 29.1 (25.9-34.0) pg MCHC 33.4 (29.9-35.2) g/dL RDW 13.1 (11.0-15.0) % Plt Count 229 (150-450) 10^3/uL MPV 10.3 (9.5-13.5) fL Neut % (Auto) 50.6 (43.0-75.0) % Lymph % (Auto) 37.6 (20.5-60.0) % [place] % (Auto) 6.2 (1.7-12.0) % Eos % (Auto) 4.9 (0.9-7.0) % Baso % (Auto) 0.6 (0.2-2.0) % Neut # (Auto) 4.5 (1.4-6.5) 10^3/uL Lymph # (Auto) 3.4 (1.2-3.8) 10^3/uL [place] # (Auto) 0.6 (0.3-0.8) 10^3/uL Eos # (Auto) 0.4 (0.0-0.7) 10^3/uL Baso # (Auto) 0.1 (0.0-0.1) 10^3/uL Abs Immat Gran (auto) 0.01 (0.00-0.03) 10^3/uL Imm/Tot Granulo (auto) 0.1 (0.0-0.5) % Sodium 140 (136-145) mmol/L Potassium 3.9 (3.5-5.1) mmol/L Chloride 104 (98-107) mmol/L Carbon Dioxide 29.4 (21.0-32.0) mmol/L Anion Gap 10.5 BUN 15.0 (7.0-18.0) mg/dL Creatinine 1.13 (0.70-1.30) mg/dL Est GFR ( Amer) >60 (>=60 mL/min/1.73m^2) Est GFR (Non-Af Amer) >60 (>=60 mL/min/1.73m^2) BUN/Creatinine Ratio 13.3 Glucose 94 (74-106) mg/dL Calcium 9.0 (8.5-10.1) mg/dL Total Bilirubin 0.2 (0.2-1.0) mg/dL AST 15 (15-37) U/L ALT 27 (16-63) U/L Alkaline Phosphatase 80 (46-116) U/L Troponin I High Sens 8.6 (4.0-76.1) pg/mL Total Protein 6.8 (6.4-8.2) g/dL Albumin 3.8 (3.4-5.0) g/dL Globulin 3.0 g/dL Albumin/Globulin Ratio 1.3 Lipase 29.0 (16.0-77.0) U/L Urine Color Lt. yellow (YELLOW) Urine Clarity Clear (CLEAR) Urine pH 5.5 (5.0-9.0) Ur Specific [place] <=1.005 A (1.005-1.025) Urine Protein Negative (NEG/TRACE) mg/dL Urine Glucose (UA) Negative (NEGATIVE) mg/dL Urine Ketones Negative (NEGATIVE) mg/dL Urine Occult Blood Negative (NEGATIVE) Urine Nitrite Negative (NEGATIVE) Urine Bilirubin Negative (NEGATIVE) Urine Urobilinogen 0.2 (0.2-1.0) EU/dL Ur Leukocyte Esterase Negative (NEGATIVE) Imaging Data CT scan - abdomen: Attestation: I have reviewed the pertinent imaging results. Radiologist's impression: CT abdomen and pelvis: No acute process in the abdomen or pelvis. X-ray chest: No acute cardiopulmonary process. Discharge Plan Discharge Chief Complaint: Abdominal Pain Clinical Impression: Abdominal pain, Atypical chest pain Patient Disposition: Home, Self-Care Time of Disposition Decision: 20:20 Condition: Good Mode of Transportation: Private Vehicle Prescriptions / Home Meds: No Action bupropion HCl 300 mg tablet extended release 24 hr 300 mg PO DAILY ketorolac 10 mg tablet 10 mg PO TID PRN (Reason: pain) Qty: 10 0RF Print Language: [place] Instructions: Chest Pain (ED), Acute Abdominal Pain (ED) Additional Instructions: Return to the ER for worsening symptoms. Follow up with your primary care provider for a recheck, further evaluation and treatment. Referrals: Physician,Non-Staff, MD [Primary Care Provider] - 1 week
[2024-10-28 19:05] LABS: Basophils Absolute Auto 0.1 10^3/uL (0.0-0.1); Basophils Percent Auto 0.6 % (0.2-2.0); Eosinophils Absolute Auto 0.4 10^3/uL (0.0-0.7); Eosinophils Percent Auto 4.9 % (0.9-7.0); Hematocrit 40.1 % (42.0-54.0); Hemoglobin 13.4 g/dL (14.0-18.0); Immature Granulocytes Abs Auto 0.01 10^3/uL (0.00-0.03); Immature Granulocytes Pct Auto 0.1 % (0.0-0.5); Lymphocytes Absolute Auto 3.4 10^3/uL (1.2-3.8); Lymphocytes Percent Auto 37.6 % (20.5-60.0); Mean Corpuscular HGB Conc 33.4 g/dL (29.9-35.2); Mean Corpuscular Hemoglobin 29.1 pg (25.9-34.0); Mean Corpuscular Volume 87.2 fL (80.0-94.0); Mean Platelet Volume 10.3 fL (9.5-13.5); Monocytes Absolute Auto 0.6 10^3/uL (0.3-0.8); Monocytes Percent Auto 6.2 % (1.7-12.0); Neutrophils Absolute Auto 4.5 10^3/uL (1.4-6.5); Neutrophils Percent Auto 50.6 % (43.0-75.0); Platelet Count 229 10^3/uL (150-450); Red Cell Distribution Width 13.1 % (11.0-15.0); White Blood Count 8.9 10^3/uL (4.0-11.0)
[2024-10-28 19:23] LABS: Alanine Aminotransferase 27 U/L (16-63); Albumin Globulin Ratio 1.3; Albumin Level 3.8 g/dL (3.4-5.0); Alkaline Phosphatase 80 U/L (46-116); Anion Gap 10.5; Aspartate Amino Transferase 15 U/L (15-37); BUN Creatinine Ratio 13.3; Bilirubin Total 0.2 mg/dL (0.2-1.0); Carbon Dioxide 29.4 mmol/L (21.0-32.0); Chloride 104 mmol/L (98-107); Estimated GFR (African America >60 (>=60 mL/min/1.73m^2); Estimated GFR (Non-African Ame >60 (>=60 mL/min/1.73m^2); Glucose 94 mg/dL (74-106); Potassium 3.9 mmol/L (3.5-5.1); Sodium 140 mmol/L (136-145); Total Protein 6.8 g/dL (6.4-8.2); Troponin I High Sensitivity 8.6 pg/mL (4.0-76.1)
[2024-10-28 20:02] LABS: Bilirubin Urine NEGATIVE (NEGATIVE); Blood Urine NEGATIVE (NEGATIVE); Clarity Urine CLEAR (CLEAR); Color Urine LT. YELLOW (YELLOW); Glucose Urine UA NEGATIVE (NEGATIVE); Ketones Urine NEGATIVE (NEGATIVE); Leukocyte Esterase Urine NEGATIVE (NEGATIVE); Nitrite Urine NEGATIVE (NEGATIVE); Protein Urine NEGATIVE (NEG/TRACE); Specific Gravity Urine <=1.005 (1.005-1.025); Urobilinogen Urine 0.2 EU/dL (0.2-1.0); pH Urine 5.5 (5.0-9.0)
[2024-10-28 20:04] LABS: Urine Microscopic Indicated NO
== END 2024-10-28 20:37 | disposition home or self-care (01) ==
PROVIDERS: Nurse Practitioner Family; Emergency Provider Emergency Medicine
DX: R10.9 Unspecified abdominal pain (principal); R07.89 Other chest pain
CPT/HCPCS: 36415; 71045; 71046; 74177; 80053; 81003; 83690; 84484; 84703; 85025; 93005; 99285; Q9967

== ENCOUNTER 2024-12-08 00:30 | Emergency (ER) | payer OTHER, SELFPAY ==
[2024-12-08 00:33] VITALS: BP 131/81; PULSE 80; TEMP 36.4; O2SAT 100; BMI 31.0
--- NOTE | 2024-12-08 00:47 | PC.NURSE ---
lower abdominal pain, increased urinary frequency He is very anxious about his medical condition, also states he recently lost two people close to his age which is making him more anxious about his symptoms
[2024-12-08 00:49] VITALS: O2SAT 100
--- NOTE | 2024-12-08 01:08 | ED.ABDPAIN1 ---
HPI - Abdominal Pain General Chief Complaint: Abdominal Pain Stated Complaint: ABDOMINAL PAIN Time Seen by Provider: 12/08/24 00:35 Source: patient Mode of arrival: walk-in Limitations: no limitations History of Present Illness HPI narrative: This 38-year-old male who is seen here recently for generalized abdominal pain and had a negative workup including labs and a CT scan presents for evaluation of ongoing abdominal pain. He states he was dissatisfied with his treatment in the emergency department last time because he did not get an ultrasound performed and he had to ask specifically what the findings were on his CAT scan and labs. At that time his CAT scan showed some degree of constipation. I did review these and the CAT scan did not show any acute findings and the labs were essentially normal. He states he is having urinary frequency and urgency and intermittent abdominal pain. At times it is in her right lower quadrant, at times it is in his right upper quadrant. He has not have any back pain. He has not had any weight loss in fact he has had some degree of weight gain. He has not had any fevers or chills. He denies any chest pain or shortness of breath. He states a friend of his 3 days ago who is the same age as him and he is now concerned about his health and freaking out . [facility] but states he wants to get checked out to make sure he does not before then. Related Data Home Medications ?Medication ?Instructions ?Recorded ?Confirmed No Known Home Medications 12/08/24 12/08/24 Allergies Allergy/AdvReac Type Severity Reaction Status Date / Time lidocaine Allergy Severe Cramping Verified 12/08/24 00:38 of the Muscles Review of Systems ROS Status of ROS 10 or more systems reviewed and unremarkable except as noted in history and below [facility] Social History Little interest or pleasure in doing things: not at all Feeling down, depressed, or hopeless: not at all Exam Narrative Exam Narrative: Vital signs and Nursing Notes reviewed: Patient is a afebrile with a normal pulse, normal blood pressure, he is not hypoxic with pulse ox of 100% on room air General: Awake, alert, oriented, extremely anxious adult male, no respiratory distress HEENT: Normocephalic atraumatic, mucous membranes are moist and pink, eyes are clear, normal conjunctiva, vision is grossly intact Chest: Lungs are clear to auscultation with good air entry, there is no wheezing rhonchi or rales appreciated no accessory muscle use, patient is speaking in complete sentences-no chest wall tenderness to palpation CVS: Regular rate and rhythm S1-S2, no murmurs rubs or gallops, pulses are brisk and equal bilaterally ABD: Soft, nondistended, nontender, no rebound guarding or rigidity, bowel sounds are normal, no pulsatile masses appreciated, no reproducible tenderness, there is a healed incision in the right inguinal area status post hernia repair Extremities: Moving all extremities, no lower extremity tenderness or swelling noted, negative Homans' sign, pulses are brisk and equal bilaterally Skin: Normal in appearance without rash,pallor, petechiae or purpura Neuro: No focal deficits Psych: Anxious, declines anxiolytic stating he is driving and is not here for drugs Constitutional Vital Signs, click to edit/add: Last Vital Signs Temp 97.6 F 12/08/24 00:33 Pulse 80 12/08/24 00:33 Resp 20 12/08/24 00:33 BP 131/81 12/08/24 00:33 Pulse Ox 100 12/08/24 00:49 O2 Del Method Room Air 12/08/24 00:49 Course Vital Signs Vital signs: Vital Signs Temperature 97.6 F 12/08/24 00:33 Pulse Rate 80 12/08/24 00:33 Respiratory Rate 20 12/08/24 00:33 Blood Pressure 131/81 12/08/24 00:33 Pulse Oximetry 100 12/08/24 00:33 Oxygen Delivery Method Room Air 12/08/24 00:33 Temperature 97.6 F 12/08/24 00:33 Pulse Rate 80 12/08/24 00:33 Respiratory Rate 20 12/08/24 00:33 Blood Pressure 131/81 12/08/24 00:33 Pulse Oximetry 100 12/08/24 00:49 Oxygen Delivery Method Room Air 12/08/24 00:49 MDM - Abdominal Pain MDM Narrative Medical decision making narrative: This 38-year-old male who was seen in this emergency department in October for abdominal pain and chest pain presents for reevaluation of ongoing abdominal pain. His pain is in different parts of his abdomen. At times right lower quadrant, times right upper quadrant, at the end of our discussion he states it is also in his epigastrium at times. He is not having any nausea or vomiting. He has not had any bloody stool. He has not had any diarrhea. He is has some degree of constipation for which he has been using Colace. He also states that he has been urinating excessively and is concerned about this. Mostly he is extremely anxious stating that a friend of his 3 days ago and he is afraid he is going to . His vital signs and physical exam are benign. An IV was placed and routine labs are ordered. He has a normal white count and hemoglobin. Electrolytes liver function tests, lactic acid and lipase are all normal. His urine is completely clear. In light of the fact that he just had a normal CT scan done last month and x-ray of the abdomen was ordered and reviewed by myself. He has a nonspecific bowel gas pattern with a moderate amount of stool but no free air or sign of obstruction. The results of all of his labs were discussed with him. He states he thinks that his head got the better of him. He does think that he may be getting an ulcer and is agreeable to a dose of Pepcid and will take Pepcid as an outpatient. Additionally I will prescribe him Bentyl for abdominal cramps. He states that in light of his friend recently dying he has decided to turn the corner and start eating better and drinking more water. He is otherwise stable for discharge. Copies of his CAT scan report from his prior ER visit in October and x-ray report from that visit were given to him. Lab Data Labs: Lab Results 12/08/24 12/08/24 Range/Units 00:40 00:43 WBC 10.8 (4.0-11.0) 10^3/uL RBC 4.99 (4.70-6.10) 10^6/uL Hgb 14.7 (14.0-18.0) g/dL Hct 42.8 (42.0-54.0) % MCV 85.8 (80.0-94.0) fL MCH 29.5 (25.9-34.0) pg MCHC 34.3 (29.9-35.2) g/dL RDW 13.1 (11.0-15.0) % Plt Count 255 (150-450) 10^3/uL MPV 10.7 (9.5-13.5) fL Neut % (Auto) 44.1 (43.0-75.0) % Lymph % (Auto) 42.6 (20.5-60.0) % [place] % (Auto) 8.3 (1.7-12.0) % Eos % (Auto) 4.3 (0.9-7.0) % Baso % (Auto) 0.5 (0.2-2.0) % Neut # (Auto) 4.8 (1.4-6.5) 10^3/uL Lymph # (Auto) 4.6 H (1.2-3.8) 10^3/uL [place] # (Auto) 0.9 H (0.3-0.8) 10^3/uL Eos # (Auto) 0.5 (0.0-0.7) 10^3/uL Baso # (Auto) 0.1 (0.0-0.1) 10^3/uL Abs Immat Gran (auto) 0.02 (0.00-0.03) 10^3/uL Imm/Tot Granulo (auto) 0.2 (0.0-0.5) % Sodium 141 (136-145) mmol/L Potassium 3.6 (3.5-5.1) mmol/L Chloride 104 (98-107) mmol/L Carbon Dioxide 26.6 (21.0-32.0) mmol/L Anion Gap 14.0 BUN 13.0 (7.0-18.0) mg/dL Creatinine 1.10 (0.70-1.30) mg/dL Est GFR ( Amer) >60 (>=60 mL/min/1.73m^2) Est GFR (Non-Af Amer) >60 (>=60 mL/min/1.73m^2) BUN/Creatinine Ratio 11.8 Glucose 121 H (74-106) mg/dL Lactate 1.0 (0.4-2.0) mmol/L Calcium 9.3 (8.5-10.1) mg/dL Total Bilirubin 0.4 (0.2-1.0) mg/dL AST 18 (15-37) U/L ALT 26 (16-63) U/L Alkaline Phosphatase 86 (46-116) U/L C-Reactive Protein <0.50 (<=0.50) mg/dL Total Protein 7.3 (6.4-8.2) g/dL Albumin 4.1 (3.4-5.0) g/dL Globulin 3.2 g/dL Albumin/Globulin Ratio 1.3 Lipase 19.0 (16.0-77.0) U/L Urine Color Lt. yellow (YELLOW) Urine Clarity Clear (CLEAR) Urine pH 6.0 (5.0-9.0) Ur Specific [place] <=1.005 A (1.005-1.025) Urine Protein Negative (NEG/TRACE) mg/dL Urine Glucose (UA) Negative (NEGATIVE) mg/dL Urine Ketones Negative (NEGATIVE) mg/dL Urine Occult Blood Negative (NEGATIVE) Urine Nitrite Negative (NEGATIVE) Urine Bilirubin Negative (NEGATIVE) Urine Urobilinogen 0.2 (0.2-1.0) EU/dL Ur Leukocyte Esterase Negative (NEGATIVE) Urine RBC None seen (0-2) #/HPF Urine WBC None seen (NONE SEEN) #/HPF Ur Squamous Epith Cells None seen (NONE/RARE) #/LPF Urine Crystals None seen (None Seen) #/HPF Urine Bacteria None seen (NONE SEEN) #/HPF Urine Casts None seen (NONE SEEN) #/LPF Urine Mucus None seen (NONE SEEN) Ur Culture Indicated? No Discharge Plan Discharge Chief Complaint: Abdominal Pain Clinical Impression: Abdominal pain, Anxiety about health Patient Disposition: Home, Self-Care Time of Disposition Decision: 02:04 Condition: Good Prescriptions / Home Meds: No Action No Known Home Medications Print Language: [place] Citizen Instructions: Acute Abdominal Pain (ED) Referrals: Physician,Non-Staff, [Primary Care Provider] - 1 week
[2024-12-08] MEDS: KETOROLAC TROMETHAMINE 30 MG/ML VIAL IVP (01:10)
[2024-12-08] MEDS: 0.9 % SODIUM CHLORIDE 1,000 ML 1000 ML IV (01:11)
[2024-12-08 01:18] LABS: Basophils Absolute Auto 0.1 10^3/uL (0.0-0.1); Basophils Percent Auto 0.5 % (0.2-2.0); Eosinophils Absolute Auto 0.5 10^3/uL (0.0-0.7); Eosinophils Percent Auto 4.3 % (0.9-7.0); Hematocrit 42.8 % (42.0-54.0); Hemoglobin 14.7 g/dL (14.0-18.0); Immature Granulocytes Abs Auto 0.02 10^3/uL (0.00-0.03); Immature Granulocytes Pct Auto 0.2 % (0.0-0.5); Lymphocytes Absolute Auto 4.6 10^3/uL (1.2-3.8); Lymphocytes Percent Auto 42.6 % (20.5-60.0); Mean Corpuscular HGB Conc 34.3 g/dL (29.9-35.2); Mean Corpuscular Hemoglobin 29.5 pg (25.9-34.0); Mean Corpuscular Volume 85.8 fL (80.0-94.0); Mean Platelet Volume 10.7 fL (9.5-13.5); Monocytes Absolute Auto 0.9 10^3/uL (0.3-0.8); Monocytes Percent Auto 8.3 % (1.7-12.0); Neutrophils Absolute Auto 4.8 10^3/uL (1.4-6.5); Neutrophils Percent Auto 44.1 % (43.0-75.0); Platelet Count 255 10^3/uL (150-450); Red Blood Count 4.99 10^6/uL (4.70-6.10); Red Cell Distribution Width 13.1 % (11.0-15.0); White Blood Count 10.8 10^3/uL (4.0-11.0)
[2024-12-08 01:19] LABS: Bilirubin Urine NEGATIVE (NEGATIVE); Blood Urine NEGATIVE (NEGATIVE); Clarity Urine CLEAR (CLEAR); Color Urine LT. YELLOW (YELLOW); Glucose Urine UA NEGATIVE (NEGATIVE); Ketones Urine NEGATIVE (NEGATIVE); Leukocyte Esterase Urine NEGATIVE (NEGATIVE); Nitrite Urine NEGATIVE (NEGATIVE); Protein Urine NEGATIVE (NEG/TRACE); Specific Gravity Urine <=1.005 (1.005-1.025); Urobilinogen Urine 0.2 EU/dL (0.2-1.0)
[2024-12-08 01:27] LABS: Bacteria Urine NONE SEEN #/HPF (NONE SEEN); Cast Seen? NONE SEEN #/LPF (NONE SEEN); Crystals Seen? None Seen #/HPF (None Seen); Mucus Urine NONE SEEN (NONE SEEN); RBC Urine NONE SEEN #/HPF (0-2); Squamous Epithelial Cell Urine NONE SEEN #/LPF (NONE/RARE); Urine Culture Indicated NO; WBC Urine NONE SEEN #/HPF (NONE SEEN)
[2024-12-08 01:41] LABS: Alanine Aminotransferase 26 U/L (16-63); Albumin Globulin Ratio 1.3; Albumin Level 4.1 g/dL (3.4-5.0); Alkaline Phosphatase 86 U/L (46-116); Aspartate Amino Transferase 18 U/L (15-37); BUN Creatinine Ratio 11.8; Bilirubin Total 0.4 mg/dL (0.2-1.0); C Reactive Protein <0.50 mg/dL (<=0.50); Calcium 9.3 mg/dL (8.5-10.1); Carbon Dioxide 26.6 mmol/L (21.0-32.0); Chloride 104 mmol/L (98-107); Estimated GFR (African America >60 (>=60 mL/min/1.73m^2); Estimated GFR (Non-African Ame >60 (>=60 mL/min/1.73m^2); Globulin 3.2 g/dL; Glucose 121 mg/dL (74-106); Potassium 3.6 mmol/L (3.5-5.1); Sodium 141 mmol/L (136-145); Total Protein 7.3 g/dL (6.4-8.2)
[2024-12-08] MEDS: FAMOTIDINE 20 MG TABLET PO (02:09)
== END 2024-12-08 02:21 | disposition home or self-care (01) ==
PROVIDERS: Emergency Provider Emergency Medicine
DX: R10.9 Unspecified abdominal pain (principal); F41.9 Anxiety disorder, unspecified
CPT/HCPCS: 36415; 74019; 80053; 81001; 83605; 83690; 85025; 86140; 96374; 99284; J1885